=== PATIENT | female | born 1935 | race African-American/Black ===

== ENCOUNTER → 2017-09-12 | Outpatient (CLI) | payer OTHER ==
[~2017-09-12] MED LIST: ADULT LOW DOSE81 MG; ALDACTONE50 MG PO; AMBIEN 5 MG TABL5 MG PO; AVELOX400 MG PO; BENADRYL25 MG PO; CEFTIN500 MG; COUMADIN 3 MG TA3 M1 PO; DILTIAZEM ER180 M1; DILTIAZEM ER240 MG PO; FISH OIL 1,0001 EAC5; FLONASE 0.05%50 MCG; LIPITOR 20 MG T20 M1 PO; PROAIR HFA8.5 GM IH; PROMETHAZINE12.5 M1; REQUIP 0.25 M0.25 M1; SIMVASTATIN10 MG PO; VENTOLIN HFA 1818 GM INH; XARELTO15 MG PO; ZOFRAN ODT4 MG PO
== END ==
LOC: RAD 12:38
DX: R10.84 Generalized abdominal pain (principal)

== ENCOUNTER → 2017-11-01 | Outpatient (CLI) | payer OTHER | LOC: LAB 10-19 06:16 → EDSTATUS 10-19 09:03 → LAB 10-19 16:46 → CAT 07:54 | PROVIDERS: Nurse Practitioner | DX: R10.9 Unspecified abdominal pain (principal); I10 Essential (primary) hypertension; I70.1 Atherosclerosis of renal artery; E88.89 Other specified metabolic disorders ==

== ENCOUNTER 2017-12-01 08:08 | Emergency (ER) | payer OTHER ==
[~2017-12-01] VITALS: Ht 162.6 cm; Wt 73.5 kg
[2017-12-01] MEDS ORDERED: TRAMADOL 50 MG50 MG PO (09:16)
[2017-12-01 10:00] VITALS: BP 163/84
== END 2017-12-01 10:02 | disposition home or self-care (01) ==
LOC: ER 08:08
DX: S83.422A Sprain of lateral collateral ligament of left knee, initial encounter (principal); S90.112A Contusion of left great toe without damage to nail, initial encounter; B35.3 Tinea pedis; I10 Essential (primary) hypertension; K21.9 Gastro-esophageal reflux disease without esophagitis; Z96.652 Presence of left artificial knee joint; Z86.718 Personal history of other venous thrombosis and embolism; Z87.891 Personal history of nicotine dependence; Z88.8 Allergy status to other drugs, medicaments and biological substances; W19.XXXA Unspecified fall, initial encounter; Y93.89 Activity, other specified; Y92.89 Other specified places as the place of occurrence of the external cause; Y99.8 Other external cause status

== ENCOUNTER 2017-12-28 22:47 | Inpatient (IN) | payer OTHER ==
[~2017-12-28] VITALS: Ht 162.6 cm; Wt 73.1 kg
[~2017-12-28 22:47] MED LIST changes: +LEFLUNOMIDE 1010 MG PO; +LYRICA 75 MG CA75 MG PO; +NEUPRO1 EAC1 TOP; +NORCO 5-325 TA1 EACH PO; +PREDNISONE 20 M20 MG PO; +PRIMIDONE50 MG PO; -REQUIP 0.25 M0.25 M1; +REQUIP 0.25 M0.25 M1 PO; +TRAMADOL 50 MG50 MG PO
[2017-12-28 23:25] VITALS: BP 136/90
[2017-12-28 23:32] LABS: URINE BILIRUBIN NEGATIVE (Negative); URINE BLOOD TRACE (Negative); URINE CLARITY CLEAR; URINE COLOR YELLOW; URINE GLUCOSE-RANDOM* NEGATIVE (Negative); URINE KETONES 1+ (Negative); URINE NITRITE-REFLEX NEGATIVE (Negative); URINE PROTEIN (DIPSTICK) NEGATIVE (Negative); URINE SPECIFIC GRAVITY 1.015 (1.005-1.035); URINE UROBILINOGEN 0.2 E.U./dl (0.2-1.0)
[2017-12-28 23:33] LABS: URINE LEUKOCYTES-REFLEX TRACE (Negative)
[2017-12-28 23:49] LABS: BASOPHILS 0.4 % (0.0-2.0); EOSINOPHILS 0.6 % (0.0-3.0); HEMATOCRIT 41.2 % (37.0-47.0); HEMOGLOBIN 13.7 gm/dL (12.0-15.0); LYMPHOCYTES 16.7 % (24.0-44.0); MCH 31.5 pg (26.0-34.0); MCHC 33.3 g/dL (28.0-37.0); MCV 94.5 fL (80.0-100.0); MONOCYTES 6.5 % (1.0-8.0); PLATELET COUNT 237 thou/uL (150-400); POLYS 75.8 % (36.0-66.0); RBC 4.36 mil/uL (4.20-5.00); RDW 12.6 % (10.5-14.5); WBC 14.5 thou/uL (4.0-11.0)
[2017-12-28 23:54] LABS: CALCIUM 9.1 mg/dL (8.5-10.1); CREATININE 1.1 mg/dL (0.6-1.0)
[2017-12-28 23:56] LABS: POTASSIUM 2.8 mmol/L (3.5-5.1)
[2017-12-29 00:02] LABS: ALBUMIN 4.3 g/dL (3.4-5.0); TOTAL BILIRUBIN 1.2 mg/dL (<0.1-1.0); TOTAL PROTEIN 7.9 g/dL (6.4-8.2)
[2017-12-29 01:49] VITALS: BP 153/69
[2017-12-29 04:51] VITALS: BP 176/82
[2017-12-29 07:27] VITALS: BP 134/76
[2017-12-29 07:36] LABS: HEMATOCRIT 34.3 % (37.0-47.0); MCHC 33.5 g/dL (28.0-37.0); MCV 95.5 fL (80.0-100.0); RBC 3.59 mil/uL (4.20-5.00); RDW 12.3 % (10.5-14.5); WBC 11.7 thou/uL (4.0-11.0)
[2017-12-29 07:37] LABS: HEMOGLOBIN 11.5 gm/dL (12.0-15.0)
[2017-12-29 07:53] LABS: CREATININE 0.9 mg/dL (0.6-1.0); MAGNESIUM 1.8 mg/dL (1.8-2.4)
[2017-12-29 07:54] LABS: POTASSIUM 4.2 mmol/L (3.5-5.1)
[2017-12-29] MEDS ORDERED: COUMADIN 1MG TAB1 M1 PO (08:23)
[2017-12-29 15:30] VITALS: BP 134/78
[2017-12-29 19:12] VITALS: BP 165/72
[2017-12-29 22:09] LABS: INR 1.1; PROTIME 11.1 Seconds (9.3-11.4)
[2017-12-30 00:21] VITALS: BP 162/88
[2017-12-30 03:42] VITALS: BP 140/69
[2017-12-30 06:05] LABS: HEMATOCRIT 37.7 % (37.0-47.0); HEMOGLOBIN 12.8 gm/dL (12.0-15.0); MCH 32.3 pg (26.0-34.0); MCHC 33.9 g/dL (28.0-37.0); MCV 95.2 fL (80.0-100.0); RBC 3.96 mil/uL (4.20-5.00); RDW 12.6 % (10.5-14.5); WBC 6.9 thou/uL (4.0-11.0)
[2017-12-30 06:08] LABS: CALCIUM 8.8 mg/dL (8.5-10.1); CREATININE 0.8 mg/dL (0.6-1.0); INR 1.1; MAGNESIUM 1.9 mg/dL (1.8-2.4); POTASSIUM 3.3 mmol/L (3.5-5.1); PROTIME 11.1 Seconds (9.3-11.4)
[2017-12-30 06:11] LABS: ALBUMIN 3.4 g/dL (3.4-5.0); DIRECT BILIRUBIN 0.1 mg/dL (<0.1-0.3); TOTAL BILIRUBIN 0.7 mg/dL (<0.1-1.0); TOTAL PROTEIN 6.6 g/dL (6.4-8.2)
[2017-12-30 07:18] VITALS: BP 152/86
[2017-12-30 15:54] VITALS: BP 152/86
== END 2017-12-30 16:04 | disposition home or self-care (01) | DRG 393 ==
LOC: ER 22:47 → 4W 12-29 00:13 → EROBS 12-29 00:13 → 4W 12-29 01:57 → ENTRNSPT 12-30 15:57 → 4W 12-30 16:04
PROVIDERS: Emergency Medicine; Hospitalist; Nurse Practitioner; Nurse Practitioner Family
DX: K91.89 Other postprocedural complications and disorders of digestive system (principal); K85.90 Acute pancreatitis without necrosis or infection, unspecified; N17.0 Acute kidney failure with tubular necrosis; I10 Essential (primary) hypertension; K21.9 Gastro-esophageal reflux disease without esophagitis; Z96.652 Presence of left artificial knee joint; G25.81 Restless legs syndrome; E87.6 Hypokalemia; E11.9 Type 2 diabetes mellitus without complications; K63.5 Polyp of colon; K80.20 Calculus of gallbladder without cholecystitis without obstruction; M62.84 Sarcopenia; D64.9 Anemia, unspecified; R29.6 Repeated falls; Z86.73 Personal history of transient ischemic attack (TIA), and cerebral infarction without residual deficits; Z86.718 Personal history of other venous thrombosis and embolism; Z86.711 Personal history of pulmonary embolism; Z88.8 Allergy status to other drugs, medicaments and biological substances; Z87.891 Personal history of nicotine dependence; Z79.899 Other long term (current) drug therapy; Y83.9 Surgical procedure, unspecified as the cause of abnormal reaction of the patient, or of later complication, without mention of misadventure at the time of the procedure
CPT/HCPCS: 10045

== ENCOUNTER 2018-02-15 03:22 | Emergency (ER) | payer OTHER ==
[~2018-02-15] VITALS: Ht 162.6 cm; Wt 63.5 kg
[~2018-02-15 03:22] MED LIST changes: +COUMADIN 1MG TAB1 M1 PO
[2018-02-15 03:50] LABS: ABSOLUTE NEUTROPHILS 9.9 thou/uL (1.4-8.2); BASOPHILS 0.7 % (0.0-2.0); EOSINOPHILS 0.7 % (0.0-3.0); HEMATOCRIT 38.9 % (37.0-47.0); HEMOGLOBIN 13.2 gm/dL (12.0-15.0); LYMPHOCYTES 14.5 % (24.0-44.0); MCHC 34.1 g/dL (28.0-37.0); MCV 93.9 fL (80.0-100.0); MONOCYTES 9.1 % (1.0-8.0); PLATELET COUNT 205 thou/uL (150-400); RBC 4.14 mil/uL (4.20-5.00); RDW 12.6 % (10.5-14.5); WBC 13.2 thou/uL (4.0-11.0)
[2018-02-15 03:56] LABS: CALCIUM 9.9 mg/dL (8.5-10.1); CREATININE 1.2 mg/dL (0.6-1.0); POTASSIUM 3.4 mmol/L (3.5-5.1)
[2018-02-15 04:00] LABS: URINE BILIRUBIN NEGATIVE (Negative); URINE BLOOD TRACE (Negative); URINE CLARITY CLEAR; URINE COLOR YELLOW; URINE GLUCOSE-RANDOM* NEGATIVE (Negative); URINE KETONES 1+ (Negative); URINE LEUKOCYTES-REFLEX NEGATIVE (Negative); URINE NITRITE-REFLEX NEGATIVE (Negative); URINE PROTEIN (DIPSTICK) NEGATIVE (Negative); URINE SPECIFIC GRAVITY 1.015 (1.005-1.035); URINE UROBILINOGEN 0.2 E.U./dl (0.2-1.0)
[2018-02-15 04:01] LABS: ALBUMIN 3.7 g/dL (3.4-5.0); TOTAL BILIRUBIN 1.1 mg/dL (<0.1-1.0)
[2018-02-15 06:25] VITALS: BP 127/82
== END 2018-02-15 06:27 | disposition home or self-care (01) ==
LOC: ER 03:22
PROVIDERS: Emergency Medicine
DX: R10.33 Periumbilical pain (principal); G89.18 Other acute postprocedural pain; R10.11 Right upper quadrant pain; I10 Essential (primary) hypertension; K21.9 Gastro-esophageal reflux disease without esophagitis; G25.81 Restless legs syndrome; E11.9 Type 2 diabetes mellitus without complications; Z90.49 Acquired absence of other specified parts of digestive tract; Z86.718 Personal history of other venous thrombosis and embolism; Z86.73 Personal history of transient ischemic attack (TIA), and cerebral infarction without residual deficits; Z96.652 Presence of left artificial knee joint; Z87.891 Personal history of nicotine dependence; Z88.8 Allergy status to other drugs, medicaments and biological substances

== ENCOUNTER 2018-02-16 17:07 | Inpatient (IN) | payer OTHER ==
[~2018-02-16] VITALS: Ht 162.6 cm; Wt 70.4 kg
--- NOTE | ~2018-02-16 | HC ---
[facility] [place] [address] CONSULTATION Name: JULIETA DAWN Room #: 226-P ADM IN M.R.#: [id number] Admission: 02/16/18 Attend Phys: Godfrey Donis MD Discharge: Date of : 36 Report #: [id number] THIS REPORT FOR: //name// CC: Orlando Donis DATE OF SERVICE: 02/20/2018 TYPE OF REPORT: Pulmonary consultation. REFERRING PHYSICIAN: Deondre Caban M.D. REASON FOR REFERRAL: Pulmonary embolus. HISTORY OF PRESENT ILLNESS: The patient is a pleasant 82-year-old white female who was admitted with back pain. A CT abdomen and pelvis showed possible ouepy-yz-uahiyat pulmonary embolus. A Pulmonary consultation was requested. The patient states that she was diagnosed with pulmonary embolus in 2006 and again in 2009. This occurred following surgical procedure. She has been on anticoagulant ever since. She has been on Coumadin. She is currently being worked up for left lower quadrant and back pain, etiology remains unclear. She had a cholecystectomy about 1 week prior to presentation. Otherwise, she denies any dyspnea or hemoptysis. She does have pain in the left low back area. PAST MEDICAL HISTORY: As mentioned above: 1. 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 2. Chronic anticoagulation. 3. Hypertension. 4. Gastroesophageal reflux disease. 5. Diabetes mellitus type 2, diet controlled. 6. History of tobacco use. 7. History of recurrent falls. 8. Cholelithiasis, status post cholecystectomy, laparoscopic. 9. History of rheumatoid arthritis, positive rheumatoid factor and vascular dementia. 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 Pituitary adenoma. ALLERGIES: PROPOXYPHENE, reaction pruritus, skin crawl. HOME MEDICATIONS: Had been leflunomide, Requip, Coumadin, diltiazem and Lyrica. [facility] [address] [place] [address] CONSULTATION Name: JULIETA DAWN Room #: 226-P [facility] IN [facility].#: [id number] Admission: 02/16/18 Attend Phys: Godfrey Donis MD Discharge: Date of : 36 Report #: [id number] FAMILY HISTORY: Noncontributory. SOCIAL HISTORY: She has smoked for 21 years, quit several years ago. She denies any alcohol use. REVIEW OF SYSTEMS: As mentioned above, otherwise 10-point system review negative. PHYSICAL EXAMINATION: GENERAL: She is awake and alert, in no distress. VITAL SIGNS: Temperature is 98 degrees Fahrenheit, pulse is 70, respiratory rate is 18, blood pressure 140/80 mmHg and saturation is 96%. HEENT: Unremarkable. NECK: Supple. CHEST: Breath sounds are good bilaterally without any rales or wheezes. CARDIOVASCULAR: Normal S1 and S2. No murmurs or gallop. There is no JVD. There is no carotid bruit. Pulses are 2+/4+ bilaterally. ABDOMEN: Soft and nontender. No organomegaly or masses felt. GENITOURINARY: Deferred. RECTAL: Deferred. EXTREMITIES: There is no edema, cyanosis or clubbing. LABORATORY DATA: As mentioned above: Electrolytes are normal, creatinine is normal. WBC 9000, hemoglobin 10.5 and platelets are normal. INR is 1.3 and it was 1.4 on admission. IMPRESSION: 1. Possible einxa-mm-dmwomnr pulmonary embolus in this 82-year-old -Citizen Of [place] female. She also has a history of deep venous thrombosis. She has been on chronic anticoagulation. About a week ago, she underwent surgery. It is likely that patient had a recurrent pulmonary embolus while been off the anticoagulation. Recommend CT chest angiogram. 2. Abdominal pain, likely related to recent cholecystectomy. 3. History of recurrent venous thromboembolism including recurrent pulmonary embolus and history of deep venous thrombosis, had been on anticoagulation. Please see above comments. 4. Hypertension. 5. Diabetes mellitus. 6. Rheumatoid arthritis. 7. Gastroesophageal reflux disease. RECOMMENDATIONS: We will proceed with CT chest angiogram. Continue anticoagulation as you are. The patient is a candidate for indefinite anticoagulation given recurrent venous thromboembolic disease. [address] [address] CONSULTATION Name: JULIETA DAWN Room #: 226-P ADM IN M.R.#: [id number] Admission: 02/16/18 Attend Phys: Godfrey Donis MD Discharge: Date of : 36 Report #: [id number] Thank you for this consultation. <ELECTRONICALLY SIGNED> By: Catracho Pinon MD 02/22/18 1646 1522 [id number] Catracho Pinon MD /nt
--- NOTE | ~2018-02-16 | HC ---
[facility] [place] [address] CONSULTATION Name: JULIETA DAWN Room #: 226-P ADM IN M.R.#: [id number] Admission: 02/16/18 Attend Phys: Godfrey Donis MD Discharge: Date of : 36 Report #: [id number] THIS REPORT FOR: //name// CC: Orlando Donis DATE OF SERVICE: 02/21/2018 INFECTIOUS DISEASE CONSULTATION ATTENDING PHYSICIAN: Dr. Donis. REASON FOR CONSULTATION: Left-sided pleuritic chest pain. UTI. Question of left pneumonia versus new pulmonary embolism. HISTORY OF PRESENT ILLNESS: The patient is an 82-year-old -[place] woman who apparently underwent laparoscopic cholecystectomy at the surgery center on 02/08/[address] Varun Houston. The patient later on visits the Emergency Room on 02/15/2018 and 02/16/2018 with back pain that is severe enough to require these 2 ER visits. At present, the patient is better. She was evaluated by Dr. Pinon. She is scheduled to have a repeat CT scan PE protocol in view of previous history of pulmonary embolism in 2017. She has been on chronic anticoagulation. Apparently, this was decreased of lately for surgical intervention. The patient mainly complaining of left-sided pleuritic chest pain. No fevers, nausea, vomiting or diarrhea. The PE protocol CT scan has not been done yet on account of the patient having no good vein access. PAST MEDICAL HISTORY: History of pulmonary embolism, on anticoagulation with warfarin and currently on therapeutic doses of Lovenox. The patient has a history of transient ischemic attack hypertension, gastroesophageal reflux, left knee surgical intervention, diabetes mellitus, diet controlled and previous cigarette smoking. ERCP and stone removal on 12/29/[address] Guerrero at [facility]. Underwent laparoscopic cholecystectomy on 02/08/2018. Currently on treatment with Rocephin and Zithromax for UTI with Escherichia coli and question left pneumonia. DRUG ALLERGIES: DARVOCET. MEDICATIONS: The patient is currently on treatment with warfarin 4 mg p.o. daily starting today, Zithromax 500 mg IV daily started 02/20/2018, hydrocodone bitartrate one tablet q.4h. p.r.n., primidone 50 mg at bedtime, Rocephin 1 gram IV every 12 hours since 02/17/2018, dicyclomine 10 mg b.i.d. p.r.n., enoxaparin 80 mg subQ b.i.d., famotidine, senna, docusate sodium, diltiazem, insulin lispro per sliding scale, ropinirole, hydrocodone p.r.n., fentanyl p.r.n. glucose, Glucagon, p.r.n. acetaminophen p.r.n. and ondansetron p.r.n. [address] [address] CONSULTATION Name: JULIETA DAWN Room #: 226-P [facility] IN M.R.#: [id number] Admission: 02/16/18 Attend Phys: Godfrey Donis MD Discharge: Date of : 36 Report #: [id number] FAMILY HISTORY: See H and P. SOCIAL HISTORY: See H and P. REVIEW OF SYSTEMS: See H and P and as above. PHYSICAL EXAMINATION: GENERAL: Well-developed, nontoxic looking woman. VITAL SIGNS: Temperature 99.2, pulse 75, respirations 19 and BP 154/91. Height 5 feet 4 inches, weight 159 pounds. She is on room air and saturations are 98%. HEENT: Head normocephalic, atraumatic. Pupils reactive, pinpoint. Mouth, upper and lower plates. NECK: Supple. No thyromegaly. LUNGS: Crackles, left lung base posteriorly. HEART: S1, S2. No gallop or murmur. ABDOMEN: Tenderness over the laparoscopic wounds. No masses or megaly. PELVIC AND RECTAL EXAMINATION: Deferred. EXTREMITIES: No clubbing, cyanosis. No pretibial edema. NEUROLOGIC: Grossly within normal limits. LABORATORY DATA: Sodium 139, potassium 3.1, BUN 6, creatinine 0.8 and glucose 108. Protime 16.4, INR 1.6. WBC on admission was 13,200 and 16,200 and has decreased to 9000 on the 14th of the month, hemoglobin 10.5 g/dL and platelets 251,000. White blood cell count differential reveals 73% segmented neutrophils and 14% lymphocytes. The urinalysis on 02/16/2018 revealed some pyuria and bacteriuria. MICROBIOLOGY DATA: The urine culture revealed E. coli sensitive to most, if not all, tested antibiotics; resistant only to tetracycline. RADIOLOGY EVALUATION: A CT scan of the abdomen and pelvis revealed atelectasis left lower lung, right-sided small pulmonary embolism and poor opacification left lower lobe arteries. The left lower lobe atelectasis, infiltrate has not been present on previous CT scan. The gallbladder is absent and surgical clips present, indicating cholecystectomy. Calcification of the abdominal aorta is noted. Nothing is said about acute pyelonephritis. There are surgical pedicle screws in L3-L4 levels from previous laminectomy. Right lower lobe embolism is noted. ASSESSMENT: 1. Left-sided pleuritic chest pain, possibly secondary to pneumonitis versus lung necrosis secondary to pulmonary embolism. 2. Status post recent laparoscopic cholecystectomy. 3. History of endoscopic retrograde cholangiopancreatography and removal of stones. 4. Diet-controlled diabetes mellitus. [facility] [address] [place] [address] CONSULTATION Name: JULIETA DAWN Room #: 226-P ADM IN M.R.#: [id number] Admission: 02/16/18 Attend Phys: Godfrey Donis MD Discharge: Date of : 36 Report #: [id number] 5. Escherichia coli in urine culture. Question urinary tract infection versus asymptomatic bacteriuria. 6. Leukocytosis, improved. SUGGESTIONS: At present, I believe we are dealing with main problem of left-sided pleuritic chest pain that might be related to either pulmonary embolism or pneumonia. Obviously, she does have a small on the right lung base, not previously present and the findings of left lower lobe atelectasis, infiltrate appears to be a new finding as well. On account of these, I recommend discontinuation of Zithromax and trial of broad-spectrum antibiotic for 24-48 hours, consequently may treat with oral Augmentin 500 mg versus 875 mg b.i.d. for 4-[address] Donis, thank you for requesting my suggestions. <ELECTRONICALLY SIGNED> By: Nile Daniels MD 02/22/18 0936 1001 1336 Nile Daniels MD /nt
[2018-02-16 17:15] VITALS: BP 166/91
[2018-02-16 18:35] LABS: HEMOGLOBIN 12.6 gm/dL (12.0-15.0); MCH 31.1 pg (26.0-34.0); MCHC 33.2 g/dL (28.0-37.0); MCV 93.7 fL (80.0-100.0); PLATELET COUNT 192 thou/uL (150-400); RBC 4.06 mil/uL (4.20-5.00); WBC 16.2 thou/uL (4.0-11.0)
[2018-02-16 19:16] LABS: PLATELET ESTIMATE NORMAL
[2018-02-16 19:48] LABS: ALBUMIN 3.3 g/dL (3.4-5.0); CALCIUM 9.1 mg/dL (8.5-10.1); CREATININE 1.2 mg/dL (0.6-1.0); POTASSIUM 3.6 mmol/L (3.5-5.1); TOTAL BILIRUBIN 1.2 mg/dL (<0.1-1.0)
[2018-02-16 19:55] LABS: URINE BILIRUBIN NEGATIVE (Negative); URINE BLOOD 1+ (Negative); URINE CLARITY SL CLOUDY; URINE COLOR YELLOW; URINE GLUCOSE-RANDOM* NEGATIVE (Negative); URINE KETONES 1+ (Negative); URINE PROTEIN (DIPSTICK) TRACE (Negative); URINE SPECIFIC GRAVITY >= 1.030 (1.005-1.035); URINE UROBILINOGEN 0.2 E.U./dl (0.2-1.0)
[2018-02-16 19:59] LABS: URINE LEUKOCYTES-REFLEX TRACE (Negative); URINE NITRITE-REFLEX POSITIVE (Negative)
[2018-02-16 20:11] LABS: BACTERIA-REFLEX >30 Many /HPF (None Seen); CASTS None Seen /LPF (None Seen); CRYSTALS None Seen /LPF (None Seen); SQUAMOUS 0-3 Few /LPF (0-3); URINE RBC None Seen /HPF (0-2); URINE WBC-REFLEX >25 Many /HPF (0-5)
[2018-02-16 21:29] VITALS: BP 160/86
[2018-02-16 23:35] VITALS: BP 163/106
[2018-02-17 04:06] VITALS: BP 124/68
[2018-02-17 05:30] LABS: HEMATOCRIT 33.4 % (37.0-47.0); HEMOGLOBIN 11.2 gm/dL (12.0-15.0); MCH 31.2 pg (26.0-34.0); MCHC 33.5 g/dL (28.0-37.0); MCV 93.2 fL (80.0-100.0); RBC 3.58 mil/uL (4.20-5.00); RDW 12.9 % (10.5-14.5); WBC 14.2 thou/uL (4.0-11.0)
[2018-02-17 05:43] LABS: CALCIUM 8.6 mg/dL (8.5-10.1); CREATININE 0.9 mg/dL (0.6-1.0); POTASSIUM 3.2 mmol/L (3.5-5.1)
[2018-02-17 06:07] LABS: INR 1.4
[2018-02-17 08:00] VITALS: BP 160/94
[2018-02-17 19:25] VITALS: BP 124/60
[2018-02-18 07:00] LABS: ABSOLUTE NEUTROPHILS 6.7 thou/uL (1.4-8.2); EOSINOPHILS 1.8 % (0.0-3.0); HEMATOCRIT 31.1 % (37.0-47.0); HEMOGLOBIN 10.5 gm/dL (12.0-15.0); LYMPHOCYTES 18.6 % (24.0-44.0); MCH 31.5 pg (26.0-34.0); MCHC 33.9 g/dL (28.0-37.0); MONOCYTES 9.3 % (1.0-8.0); PLATELET COUNT 197 thou/uL (150-400); POLYS 69.3 % (36.0-66.0); RBC 3.34 mil/uL (4.20-5.00); RDW 13.1 % (10.5-14.5); WBC 9.6 thou/uL (4.0-11.0)
[2018-02-18 07:06] LABS: CREATININE 0.8 mg/dL (0.6-1.0); INR 1.2; POTASSIUM 3.3 mmol/L (3.5-5.1); PROTIME 12.2 Seconds (9.3-11.4)
[2018-02-18 07:50] VITALS: BP 145/82
[2018-02-18 20:30] VITALS: BP 161/79
[2018-02-19 05:35] LABS: ABSOLUTE NEUTROPHILS 6.6 thou/uL (1.4-8.2); BASOPHILS 1.2 % (0.0-2.0); EOSINOPHILS 3.4 % (0.0-3.0); HEMATOCRIT 31.3 % (37.0-47.0); HEMOGLOBIN 10.5 gm/dL (12.0-15.0); MCH 30.9 pg (26.0-34.0); MCHC 33.4 g/dL (28.0-37.0); MCV 92.5 fL (80.0-100.0); PLATELET COUNT 251 thou/uL (150-400); POLYS 73.4 % (36.0-66.0); RBC 3.39 mil/uL (4.20-5.00); RDW 12.9 % (10.5-14.5)
[2018-02-19 05:42] LABS: CREATININE 0.7 mg/dL (0.6-1.0); POTASSIUM 3.4 mmol/L (3.5-5.1)
[2018-02-19 05:44] LABS: INR 1.3; PROTIME 13.6 Seconds (9.3-11.4)
[2018-02-19 08:00] VITALS: BP 164/91
[2018-02-19 14:20] LABS: INR 1.4; PROTIME 13.9 Seconds (9.3-11.4)
[2018-02-19 20:58] VITALS: BP 161/82
[2018-02-20 08:26] VITALS: BP 145/80
[2018-02-20 21:11] VITALS: BP 158/91
[2018-02-21 07:20] VITALS: BP 154/91
[2018-02-21 08:55] LABS: CALCIUM 8.9 mg/dL (8.5-10.1); CREATININE 0.8 mg/dL (0.6-1.0); POTASSIUM 3.1 mmol/L (3.5-5.1)
[2018-02-21 09:46] LABS: INR 1.6; PROTIME 16.4 Seconds (9.3-11.4)
[2018-02-21 19:47] VITALS: BP 166/90
[2018-02-22 07:47] LABS: ABSOLUTE NEUTROPHILS 3.9 thou/uL (1.4-8.2); BASOPHILS 1.2 % (0.0-2.0); EOSINOPHILS 4.5 % (0.0-3.0); HEMATOCRIT 32.9 % (37.0-47.0); HEMOGLOBIN 11.1 gm/dL (12.0-15.0); LYMPHOCYTES 25.7 % (24.0-44.0); MCH 31.2 pg (26.0-34.0); MCHC 33.7 g/dL (28.0-37.0); MCV 92.6 fL (80.0-100.0); MONOCYTES 9.1 % (1.0-8.0); PLATELET COUNT 375 thou/uL (150-400); POLYS 59.5 % (36.0-66.0); RBC 3.56 mil/uL (4.20-5.00); WBC 6.6 thou/uL (4.0-11.0)
[2018-02-22 07:58] LABS: CALCIUM 9.4 mg/dL (8.5-10.1); CREATININE 0.8 mg/dL (0.6-1.0); POTASSIUM 3.3 mmol/L (3.5-5.1)
[2018-02-22 08:16] LABS: INR 1.6; PROTIME 16.7 Seconds (9.3-11.4)
[2018-02-22 19:10] VITALS: BP 145/78
[2018-02-23 06:57] LABS: HEMATOCRIT 32.6 % (37.0-47.0); MCH 31.2 pg (26.0-34.0); MCHC 33.8 g/dL (28.0-37.0); MCV 92.2 fL (80.0-100.0); RBC 3.54 mil/uL (4.20-5.00); RDW 12.8 % (10.5-14.5); WBC 6.5 thou/uL (4.0-11.0)
[2018-02-23 07:17] LABS: ALBUMIN 2.7 g/dL (3.4-5.0); CALCIUM 9.4 mg/dL (8.5-10.1); CREATININE 0.8 mg/dL (0.6-1.0); MAGNESIUM 1.9 mg/dL (1.8-2.4); TOTAL BILIRUBIN 0.4 mg/dL (<0.1-1.0); TOTAL PROTEIN 6.9 g/dL (6.4-8.2)
[2018-02-23 08:14] VITALS: BP 146/76
[2018-02-23 12:27] LABS: PROTIME 28.6 Seconds (9.3-11.4)
[2018-02-23 12:30] LABS: INR 2.8
[2018-02-23 20:20] VITALS: BP 154/79
[2018-02-24 07:23] LABS: ABSOLUTE NEUTROPHILS 3.3 thou/uL (1.4-8.2); BASOPHILS 1.2 % (0.0-2.0); EOSINOPHILS 4.8 % (0.0-3.0); HEMATOCRIT 32.5 % (37.0-47.0); LYMPHOCYTES 32.4 % (24.0-44.0); MCH 31.1 pg (26.0-34.0); MCHC 33.8 g/dL (28.0-37.0); MONOCYTES 9.9 % (1.0-8.0); PLATELET COUNT 406 thou/uL (150-400); POLYS 51.7 % (36.0-66.0); RBC 3.53 mil/uL (4.20-5.00); RDW 12.8 % (10.5-14.5); WBC 6.3 thou/uL (4.0-11.0)
[2018-02-24 07:25] VITALS: BP 148/72
[2018-02-24 07:31] LABS: CALCIUM 9.6 mg/dL (8.5-10.1); MAGNESIUM 1.9 mg/dL (1.8-2.4)
[2018-02-24 07:35] LABS: PROTIME 30.1 Seconds (9.3-11.4)
[2018-02-24 14:19] VITALS: BP 148/92
[2018-02-24 14:29] VITALS: BP 148/92
[2018-02-24 15:41] LABS: URINE BILIRUBIN NEGATIVE (Negative); URINE BLOOD NEGATIVE (Negative); URINE CLARITY CLEAR; URINE COLOR YELLOW; URINE GLUCOSE-RANDOM* NEGATIVE (Negative); URINE KETONES NEGATIVE (Negative); URINE LEUKOCYTES-REFLEX NEGATIVE (Negative); URINE NITRITE-REFLEX NEGATIVE (Negative); URINE PROTEIN (DIPSTICK) NEGATIVE (Negative); URINE SPECIFIC GRAVITY >= 1.030 (1.005-1.035); URINE UROBILINOGEN 0.2 E.U./dl (0.2-1.0)
[2018-02-24 15:57] VITALS: BP 148/92
== END 2018-02-24 17:15 | disposition home health service (06) | DRG 871 ==
LOC: ER 17:07 → EROBS 20:51 → 4W 20:51 → SICU 20:51 → 4W 23:45 → SICU 02-19 19:15 → ENTRNSPT 02-24 16:52 → SICU 02-24 17:15
PROVIDERS: Family Medicine; Hospitalist; Internal Medicine Pulmonary Disease; Nurse Practitioner Family; Physician Assistant
DX: A41.9 Sepsis, unspecified organism (principal); G92 Toxic encephalopathy; I26.99 Other pulmonary embolism without acute cor pulmonale; J18.9 Pneumonia, unspecified organism; N39.0 Urinary tract infection, site not specified; N17.9 Acute kidney failure, unspecified; I10 Essential (primary) hypertension; K21.9 Gastro-esophageal reflux disease without esophagitis; Z96.652 Presence of left artificial knee joint; G25.81 Restless legs syndrome; M06.9 Rheumatoid arthritis, unspecified; B96.20 Unspecified Escherichia coli [E. coli] as the cause of diseases classified elsewhere; E11.40 Type 2 diabetes mellitus with diabetic neuropathy, unspecified; M19.90 Unspecified osteoarthritis, unspecified site; M62.84 Sarcopenia; E87.6 Hypokalemia; F03.90 Unspecified dementia, unspecified severity, without behavioral disturbance, psychotic disturbance, mood disturbance, and anxiety; Z86.73 Personal history of transient ischemic attack (TIA), and cerebral infarction without residual deficits; Z87.891 Personal history of nicotine dependence; Z86.718 Personal history of other venous thrombosis and embolism; Z90.49 Acquired absence of other specified parts of digestive tract; Z88.8 Allergy status to other drugs, medicaments and biological substances; Z79.01 Long term (current) use of anticoagulants; Z23 Encounter for immunization
CPT/HCPCS: 10045; 15000

== ENCOUNTER 2018-08-29 14:08 | Emergency (ER) | payer OTHER ==
[~2018-08-29] VITALS: Ht 162.6 cm; Wt 67.1 kg
[2018-08-29 14:52] LABS: ABSOLUTE NEUTROPHILS 4.3 thou/uL (1.4-8.2); BASOPHILS 1.2 % (0.0-2.0); EOSINOPHILS 1.6 % (0.0-3.0); HEMATOCRIT 38.6 % (37.0-47.0); LYMPHOCYTES 35.5 % (24.0-44.0); MCH 30.6 pg (26.0-34.0); MCHC 33.7 g/dL (28.0-37.0); MCV 90.8 fL (80.0-100.0); MONOCYTES 7.6 % (1.0-8.0); PLATELET COUNT 256 thou/uL (150-400); POLYS 54.1 % (36.0-66.0); RBC 4.25 mil/uL (4.20-5.00); RDW 14.4 % (10.5-14.5); WBC 7.9 thou/uL (4.0-11.0)
[2018-08-29 15:00] LABS: ANION GAP 13 mmol/L (7-16); BUN 12 mg/dL (7-18); CALCIUM 9.6 mg/dL (8.5-10.1); CHLORIDE 104 mmol/L (98-107); CO2 26 mmol/L (21-32); GLUCOSE 110 mg/dL (74-106); POTASSIUM 3.3 mmol/L (3.5-5.1); SODIUM 143 mmol/L (136-145)
[2018-08-29 15:02] LABS: URINE BILIRUBIN NEGATIVE (Negative); URINE BLOOD 1+ (Negative); URINE CLARITY CLEAR; URINE COLOR YELLOW; URINE GLUCOSE-RANDOM* NEGATIVE (Negative); URINE KETONES NEGATIVE (Negative); URINE LEUKOCYTES 2+ (Negative); URINE NITRITE NEGATIVE (Negative); URINE PROTEIN (DIPSTICK) 1+ (Negative); URINE SPECIFIC GRAVITY >= 1.030 (1.005-1.035); URINE UROBILINOGEN 0.2 E.U./dl (0.2-1.0)
[2018-08-29 15:09] LABS: ALBUMIN 3.8 g/dL (3.4-5.0); SGOT 16 U/L (15-37); SGPT 15 U/L (30-65); TOTAL BILIRUBIN 0.5 mg/dL (<0.1-1.0); TOTAL PROTEIN 7.9 g/dL (6.4-8.2); TROPONIN-I <0.06 ng/mL (<0.06)
[2018-08-29 15:11] LABS: CASTS None Seen /LPF (None Seen); CRYSTALS None Seen /LPF (None Seen); MUCUS >6 Heavy strn/LPF (None Seen); SQUAMOUS 0-3 Few /LPF (0-3); URINE WBC >25 Many /HPF (0-5)
[2018-08-29 15:12] LABS: WBC CLUMPS Few (None Seen)
[2018-08-29] MEDS ORDERED: AMOXICILLIN875 MG PO (15:38)
[2018-08-29 16:01] LABS: APTT 24.9 Seconds (24.5-32.8); D-DIMER 1.19 ug/mLFEU (0.19-0.50); PROTIME 10.5 Seconds (9.3-11.4)
[2018-08-29 17:52] VITALS: BP 189/90
--- NOTE | 2018-08-31 09:26 | EKG ---
[place] [address] [facility] [place] [address] ELECTROCARDIOGRAM REPORT Name: JULIETA DAWN Room #: DEP Marisol#: [id number] ������������������ Admission: 08/29/18 ������������������ Attend Phys: Discharge: 08/29/18 ������������������ Date of : 36 Report #: [id number] ����������������������������������������������������������������� [id number] THIS REPORT FOR: //name// [facility] ED Test Date: 2018-08-29 Test Time: 14:17:14 Pat Name: JULIETA DAWN Department: Room: Gender: F Baker Second: : 1935 Requested By: Luis Feliciano Order Number: [id number] MD: Zhang Roa Measurements Intervals [place] Rate: 73 P: 21 MT: 149 QRS: -61 QRSD: 129 T: 11 QT: 415 QTc: 458 Interpretive Statements Sinus rhythm RBBB and LAFB Left ventricular hypertrophy Compared to ECG 05/01/2014 20:20:45 No significant change was found Electronically Signed On 08-31-2018 9:26:32 CDT by Zhang Roa [email or web address] ��������������������������������������������� <ELECTRONICALLY SIGNED> ���������������������������������������� By: Zhang Roa MD, [facility] ��������������������������������������������� 08/31/18 0926 1417 141 Zhang Roa MD, FACC /EPI
== END 2018-08-29 17:54 | disposition home or self-care (01) ==
LOC: ER 14:08
PROVIDERS: Emergency Medicine
DX: I95.1 Orthostatic hypotension (principal); N39.0 Urinary tract infection, site not specified; R55 Syncope and collapse; R06.02 Shortness of breath; R79.1 Abnormal coagulation profile; I10 Essential (primary) hypertension; K21.9 Gastro-esophageal reflux disease without esophagitis; G25.81 Restless legs syndrome; E11.9 Type 2 diabetes mellitus without complications; F03.90 Unspecified dementia, unspecified severity, without behavioral disturbance, psychotic disturbance, mood disturbance, and anxiety; Z90.49 Acquired absence of other specified parts of digestive tract; Z86.711 Personal history of pulmonary embolism; Z86.73 Personal history of transient ischemic attack (TIA), and cerebral infarction without residual deficits; Z86.718 Personal history of other venous thrombosis and embolism; Z87.891 Personal history of nicotine dependence; Z88.8 Allergy status to other drugs, medicaments and biological substances

== ENCOUNTER → 2018-09-07 | Outpatient (CLI) | payer OTHER ==
[~2018-09-07] MED LIST changes: +AMOXICILLIN875 MG PO
== END ==
LOC: ULTRA 10:09
DX: M71.22 Synovial cyst of popliteal space [Baker], left knee (principal)

== ENCOUNTER 2020-02-29 10:48 | Emergency (ER) | payer OTHER ==
[~2020-02-29] VITALS: Ht 162.6 cm; Wt 54.4 kg
[2020-02-29] MEDS ORDERED: TRAMADOL 50 MG50 MG PO (11:05)
[2020-02-29 11:54] LABS: ABSOLUTE NEUTROPHILS 4.3 thou/uL (1.4-8.2); BASOPHILS 0.8 % (0.0-2.0); HEMATOCRIT 39.7 % (37.0-47.0); HEMOGLOBIN 12.7 gm/dL (12.0-15.0); LYMPHOCYTES 29.1 % (24.0-44.0); MCH 30.5 pg (26.0-34.0); MCV 95.4 fL (80.0-100.0); MONOCYTES 8.8 % (1.0-8.0); PLATELET COUNT 312 thou/uL (150-400); POLYS 59.3 % (36.0-66.0); RBC 4.16 mil/uL (4.20-5.00); RDW 13.4 % (10.5-14.5); WBC 7.2 thou/uL (4.0-11.0)
[2020-02-29 13:11] LABS: ALBUMIN 3.2 g/dL (3.4-5.0); ANION GAP 8 mmol/L (7-16); BUN 10 mg/dL (7-18); CALCIUM 8.9 mg/dL (8.5-10.1); CHLORIDE 107 mmol/L (98-107); CO2 29 mmol/L (21-32); CREATININE 0.9 mg/dL (0.6-1.0); GLUCOSE 91 mg/dL (74-106); SGOT 13 U/L (15-37); SGPT 9 U/L (30-65); SODIUM 144 mmol/L (136-145); TOTAL BILIRUBIN 0.8 mg/dL (0.2-1.0); TOTAL PROTEIN 6.8 g/dL (6.4-8.2); TROPONIN-I <0.06 ng/mL (<0.06)
[2020-02-29 13:13] LABS: POTASSIUM 2.9 mmol/L (3.5-5.1)
[2020-02-29] MEDS ORDERED: POTASSIUM20 PO (15:01)
[2020-02-29 15:27] VITALS: BP 152/71
--- NOTE | 2020-03-01 09:35 | EKG ---
[facility] [place] [address] ELECTROCARDIOGRAM REPORT Name: JULIETA DAWN Room #: DEP [facility]#: [id number] Admission: 02/29/20 Attend Phys: Discharge: 02/29/20 Date of : 36 Report #: [id number] THIS REPORT FOR: cc: Orlando Garcia James A. DO Couchonnal, Luis F. MD ~ THIS REPORT FOR: //name// [facility] ED Test Date: 2020-02-29 Test Time: 10:51:17 Pat Name: JULIETA DAWN Department: Room: Gender: F Vehicle Detailer: JOSIAS : 1935 Requested By: Bin Dickey Order Number: [id number] MD: Veto Daniels Measurements Intervals [place] Rate: 58 P: -14 MD: 154 QRS: -43 QRSD: 133 T: 14 QT: 447 QTc: 440 Interpretive Statements Sinus rhythm RBBB and LAFB Left ventricular hypertrophy Compared to ECG 08/29/2018 14:17:14 No significant changes Electronically Signed On 03-01-2020 9:35:04 CDT by Veto Daniels [email or web address] <ELECTRONICALLY SIGNED> By: Veto Daniels MD 03/01/20 0935 1051 1051 Veto Daniels MD /EPI
== END 2020-02-29 15:28 | disposition home or self-care (01) ==
LOC: ER 10:48
PROVIDERS: Emergency Medicine
DX: E87.6 Hypokalemia (principal); R07.89 Other chest pain; I10 Essential (primary) hypertension; K21.9 Gastro-esophageal reflux disease without esophagitis; E11.9 Type 2 diabetes mellitus without complications; F03.90 Unspecified dementia, unspecified severity, without behavioral disturbance, psychotic disturbance, mood disturbance, and anxiety; Z86.73 Personal history of transient ischemic attack (TIA), and cerebral infarction without residual deficits; Z86.718 Personal history of other venous thrombosis and embolism; Z86.711 Personal history of pulmonary embolism; Z79.899 Other long term (current) drug therapy; Z79.01 Long term (current) use of anticoagulants; Z88.8 Allergy status to other drugs, medicaments and biological substances; Z87.891 Personal history of nicotine dependence

== ENCOUNTER 2020-11-21 15:36 | Emergency (ER) | payer OTHER ==
[~2020-11-21] VITALS: Ht 162.6 cm; Wt 53.1 kg
--- NOTE | ~2020-11-21 | EMS ---
[facility] [address] [place] [address] EMS Patient Care Report Name: JULIETA DAWN Room #: DEP JENNIFER Damon#: [id number] Admission: 11/21/20 Attend Phys: Discharge: 11/21/20 Date of : 36 Report #: [id number] THIS REPORT FOR: //name// Report Transmitted: 11/24/2020 08:20 EMS Care Summary [place], [place]/[facility] Incident [id number] @ 11/21/2020 14:58 Incident Location [address] [place] [address] Patient JULIETA DAWN Female, 85 Years 1935 Patient Address [address] [place] [address] Patient History Dementia,Hypertension (HTN),TIA, Patient Allergies No known allergies, Patient Medications Leflunomide, Ropinirole, Lisinopril, Duloxetine, Donepezil, Chief Complaint DIZZINESS Disposition Transported No Lights/[place] Dispatch Reason Overdose/Poisoning/Ingestion Transported To [facility] Narrative [facility] AND FOUND A 85 YO FEMALE PT WHO STATES THAT SHE FEELS DIZZY. SHE [facility] [address] [place] [address] EMS Patient Care Report Name: JULIETA DAWN Room #: DEP JENNIFER Damon#: [id number] Admission: 11/21/20 Attend Phys: Discharge: 11/21/20 Date of : 36 Report #: [id number] STATES THAT SHE NORMALLY TAKES HER MEDS IN THE EVENING BUT TOOK THEM THIS MORNING BECAUSE SHE WAS CONFUSED. SHE STATES THAT SHE BELIEVES THAT IS WHY SHE IS FEELING DIZZY. THE PT STATES THAT SHE DOES NOT HAVE ANY PAIN. PT STATES THAT SHE FEELS DIZZY. PT DENIES CP, SOA, NV, ABD PAIN. PT DOES HAVE DEMENTIA AND IS CONFUSED. PT MOVED TO THE COT AND INTO THE AMBULANCE. VITALS OBTAINED. BGA OBTAINED. M[address] [facility]. EN ROUTE PT REMAINED STABLE. REPORT GIVEN TO DEB MADERA. SIGNATURES OBTAINED. TRANSFER OF CARE TOOK PLACE. M41 IN SERVICE. VALORIE HERNANDEZ [employer] Initial Vitals @15:10P: 77,R: 18,BP: 186/103,Pain: 0/10,GCS: 14,CO: 0,SpO2: 100,Revised Trauma: 12, @15:12P: 73,R: 18,BP: 179/99,Pain: 0/10,GCS: 14,Glucose: 214,SpO2: 99,Revised Trauma: 12, Assessments @15:15MENTAL:Confused,Person Oriented,Place Oriented,SKIN:HEENT:Head/Face: No Abnormalities,Neck/Airway: No Abnormalities,LUNG SOUNDS:General: No Abnormalities,ABDOMEN:General: No Abnormalities,PELVIS//GI:No Abnormalities,EXTREMITIES:Capillary Refill: Right Upper: < 2 Sec,Left Arm: No Abnormalities,Right Arm: No Abnormalities,Left Leg: No Abnormalities,Right Leg: No Abnormalities,PULSE:Radial: 2+ Normal,NEURO:Other, Impression Dizziness Procedures @15:14ALS AssessmentResponse: UnchangedSucceeded Timeline 14:42,Call Received 14:42,Dispatch Notified 14:58,Dispatched 14:58,En Route [facility] [address] [place] [address] EMS Patient Care Report Name: JULIETA DAWN Room #: DEP Marisol#: [id number] Admission: 11/21/20 Attend Phys: Discharge: 11/21/20 Date of : 36 Report #: [id number] 15:05,On Scene 15:07,At Patient 15:10,BP: 186/103 M,PULSE: 77,RR: 18 R,SPO2: 100 Ox,ETCO2: ,BG: ,PAIN: 0,GCS: 14, 15:12,BP: 179/99 M,PULSE: 73,RR: 18 R,SPO2: 99 Ox,ETCO2: ,B,PAIN: 0,GCS: 14, 15:14,Depart Scene 15:14,ALS Assessment,Response: UnchangedSucceeded, 15:31,At Destination 15:40,Call Closed Disclaimer v1.1 Copyright 2020 [employer] This EMS Care Summary contains data elements from the applicable legal record (which may be displayed differently). It is designed to provide pertinent information for the following purposes: continuity of care, clinical quality, and state data reporting. The complete legal record is available to ED staff and administrators of the receiving hospital in [employer]'s Patient Tracker. All data is provided "as is."
[~2020-11-21 15:36] MED LIST changes: +POTASSIUM20 PO
[2020-11-21] MEDS ORDERED: ARICEPT10 M1 PO (16:38)
[2020-11-21] MEDS ORDERED: LISINOPRIL10 MG PO (16:39)
[2020-11-21] MEDS ORDERED: DRIZALMA SPRINK30 MG PO (16:39)
[2020-11-21] MEDS ORDERED: FOLIC ACID1 MG PO (16:40)
[2020-11-21 16:46] LABS: BASOPHILS 0.7 % (0.0-2.0); EOSINOPHILS 1.3 % (0.0-3.0); HEMATOCRIT 32.9 % (37.0-47.0); HEMOGLOBIN 11.3 gm/dL (12.0-15.0); LYMPHOCYTES 28.7 % (24.0-44.0); MCH 32.3 pg (26.0-34.0); MCHC 34.3 g/dL (28.0-37.0); MCV 94.1 fL (80.0-100.0); MONOCYTES 8.4 % (1.0-8.0); PLATELET COUNT 281 thou/uL (150-400); POLYS 60.9 % (36.0-66.0); RDW 13.1 % (10.5-14.5); WBC 6.5 thou/uL (4.0-11.0)
[2020-11-21 16:53] LABS: ANION GAP 8 mmol/L (7-16); BUN 15 mg/dL (7-18); CALCIUM 8.2 mg/dL (8.5-10.1); CHLORIDE 109 mmol/L (98-107); CO2 28 mmol/L (21-32); CREATININE 0.8 mg/dL (0.6-1.0); GLUCOSE 96 mg/dL (74-106); POTASSIUM 3.3 mmol/L (3.5-5.1); SALICYLATE < 2.8 mg/dL (2.8-20.0); SODIUM 145 mmol/L (136-145)
[2020-11-21 17:39] VITALS: BP 125/84
--- NOTE | 2020-11-23 14:23 | EKG ---
[facility] [employer] [place] [address] ELECTROCARDIOGRAM REPORT Name: JULIETA DAWN Room #: DEP Marisol#: [id number] Admission: 11/21/20 Attend Phys: Discharge: 11/21/20 Date of : 36 Report #: [id number] [facility] ED Test Date: 2020-11-21 Test Time: 16:43:37 Pat Name: JULIETA DAWN Department: Room: Gender: F Data Operations Director: : 1935 Requested By: Kennedi Lara Order Number: [id number] MD: Zhang Roa Measurements Intervals [place] Rate: 53 P: -32 RI: 157 QRS: -51 QRSD: 127 T: -15 QT: 469 QTc: 441 Interpretive Statements Sinus rhythm RBBB and LAFB Left ventricular hypertrophy Compared to ECG 02/29/2020 10:51:17 No significant changes Electronically Signed On 11-23-2020 14:23:07 CDT by Zhang Roa [email or web address] <ELECTRONICALLY SIGNED> By: Zhang Roa MD, [facility] 11/23/20 1423 1643 1643 Zhang Roa MD, FACC /EPI
== END 2020-11-21 17:40 | disposition home or self-care (01) ==
LOC: ER 15:36
PROVIDERS: Emergency Medicine
DX: R41.82 Altered mental status, unspecified (principal); T65.91XA Toxic effect of unspecified substance, accidental (unintentional), initial encounter; F17.210 Nicotine dependence, cigarettes, uncomplicated; K21.9 Gastro-esophageal reflux disease without esophagitis; I10 Essential (primary) hypertension; Z88.8 Allergy status to other drugs, medicaments and biological substances; Z79.899 Other long term (current) drug therapy; Z86.73 Personal history of transient ischemic attack (TIA), and cerebral infarction without residual deficits; Y92.89 Other specified places as the place of occurrence of the external cause

== ENCOUNTER → 2021-01-02 | Outpatient (CLI) | payer OTHER ==
[~2021-01-02] MED LIST changes: +ARICEPT10 M1 PO; +DRIZALMA SPRINK30 MG PO; +FOLIC ACID1 MG PO; +LISINOPRIL10 MG PO
== END ==
LOC: ULTRA 08:12
PROVIDERS: ATTEND Nurse Practitioner
DX: R10.11 Right upper quadrant pain (principal); R19.7 Diarrhea, unspecified; I70.0 Atherosclerosis of aorta; Z90.49 Acquired absence of other specified parts of digestive tract